=== PATIENT | female | born 1985 | race African-American/Black ===

== ENCOUNTER 2022-09-30 11:44 | Emergency (ER) | payer SELFPAY ==
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
--- NOTE | ~2022-09-30 | XR_ITS ---
EXAMINATION: XR LUMBOSACRAL SPINE CLINICAL INFORMATION: Pain COMPARISON: None available. TECHNIQUE: Three views of the lumbosacral spine. FINDINGS: There are small riblets extending off the T12 vertebral body. There are 5 nonrib-bearing lumbar-type vertebral bodies. The height of vertebral bodies and disc spaces is well-maintained. There is loss of the usual lumbar lordosis which can be seen with muscle spasm. There is question of L5 spondylolysis without spondylolisthesis. XR/XR lumbar spine 2-3V IMPRESSION: 1. Muscle spasm. 2. Question of L5 spondylolysis without spondylolisthesis. CT scan or MRI scan could be obtained for further evaluation if there is clinical concern for spondylolisthesis or spondylolysis.
[2022-09-30 11:47] VITALS: BP 143/53; PULSE 70; RESP 18; TEMP 36; O2SAT 100; BMI 26.4
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
[2022-09-30 14:07] VITALS: BP 123/76; PULSE 63; RESP 18; TEMP 36.8; O2SAT 100
[2022-09-30] MEDS: Ibuprofen 600 MG TABLET PO (14:44)
== END 2022-09-30 14:49 | disposition home or self-care (01) ==
PROVIDERS: Emergency Provider Emergency Medicine
DX: M43.04 Spondylolysis, thoracic region (principal); S70.11XA Contusion of right thigh, initial encounter; V43.02XA Car driver injured in collision with other type car in nontraffic accident, initial encounter; M54.50 Low back pain, unspecified; Y93.89 Activity, other specified; Y92.414 Local residential or business street as the place of occurrence of the external cause; Y99.9 Unspecified external cause status
CPT/HCPCS: 72072; 72100; 99283

== ENCOUNTER 2024-06-03 22:23 | Emergency (ER) | payer OTHER, SELFPAY ==
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
[2024-06-03 22:47] VITALS: BP 103/44; PULSE 90; RESP 18; TEMP 36.7; O2SAT 98; BMI 28.0
[2024-06-04 01:47] VITALS: BP 113/63; PULSE 64; RESP 18; TEMP 36.7; O2SAT 99
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
[2024-06-04] MEDS: methocarbamoL 750 MG TABLET PO (03:04)
[2024-06-04] MEDS: Ketorolac Tromethamine 15 MG/ML VIAL IM (03:04)
[2024-06-04 04:00] VITALS: BP 110/58; PULSE 62; RESP 16; TEMP 36.7; O2SAT 97
[2024-06-04 04:03] VITALS: BP 110/58; PULSE 62; RESP 16; TEMP 36.7; O2SAT 97
== END 2024-06-04 04:16 | disposition home or self-care (01) ==
PROVIDERS: Emergency Provider Emergency Medicine
DX: S20.212A Contusion of left front wall of thorax, initial encounter (principal); Y04.0XXA Assault by unarmed brawl or fight, initial encounter; Y93.9 Activity, unspecified; Y92.9 Unspecified place or not applicable; Y99.9 Unspecified external cause status
CPT/HCPCS: 71100; 96372; 99284; J1885

== ENCOUNTER → 2024-06-03 23:00 | Outpatient (BNV) | payer SELFPAY | PROVIDERS: Visit Provider Radiology Diagnostic Radiology | DX: R07.81 Pleurodynia (principal) | CPT/HCPCS: 71100 ==